=== PATIENT | female | born 1980 | race Caucasian/White ===

== ENCOUNTER 2018-12-09 05:45 | Inpatient (IN) | payer OTHER ==
[~2018-12-09] VITALS: Ht 165.1 cm; Wt 86.2 kg
[2018-12-12] MEDS ORDERED: NAPR500T14 PO (10:13)
[2018-12-12] MEDS ORDERED: CODE1TAB37 PO (10:13)
== END 2018-12-12 10:45 | disposition home or self-care (01) | DRG 743 ==
LOC: CIR.AMB 05:45 → OB/GYN 07:47 → O/R 07:47 → CIR.AMB 10:45 → OB/GYN 11:36 → CIR.AMB 14:40 → EDSTATUS 15:37 → OB/GYN 15:39 → EDSTATUS 16:01 → OB/GYN 12-12 10:45
PROVIDERS: ADMIT Obstetrics & Gynecology
PROC: 0UB10ZZ Excision of Left Ovary, Open Approach (ICD-10-PCS; 2018-12-09)
PROC: 0TJB8ZZ Inspection of Bladder, Via Natural or Artificial Opening Endoscopic (ICD-10-PCS; 2018-12-09)
PROC: 0UT90ZZ Resection of Uterus, Open Approach (ICD-10-PCS; principal; 2018-12-09 10:45)
PROC: 0UB70ZZ Excision of Bilateral Fallopian Tubes, Open Approach (ICD-10-PCS; 2018-12-09 10:45)
DX: D25.1 Intramural leiomyoma of uterus (principal); N72 Inflammatory disease of cervix uteri; N83.292 Other ovarian cyst, left side; N83.8 Other noninflammatory disorders of ovary, fallopian tube and broad ligament; R10.2 Pelvic and perineal pain